=== PATIENT | male | born 1980 | race Caucasian/White ===

== ENCOUNTER 2023-10-31 21:14 | Inpatient (IN) | payer OTHER, SELFPAY ==
[~2023-10-31 21:14] MED LIST: Iopamidol-370 76% 500 ML MDV (1 ML CHARGE) ONE
[2023-10-31] MEDS ORDERED: Morphine 4 MG/ML VIAL ONE (21:21)
[2023-10-31] MEDS ORDERED: Ondansetron PF 4 MG/2 ML Vial ONE (21:21)
[2023-10-31] MEDS ORDERED: Boostrix 0.5 ML (Tdap) VIAL (>/=7 yrs of age) ONE (21:22)
[2023-10-31] MEDS ORDERED: Sodium Chloride 0.9% 100 ML ONE (21:22)
[2023-10-31] MEDS ORDERED: CEFAZOLIN 2 GM VIAL ONE (21:22)
[2023-10-31 21:42] LABS: Hematocrit 45.4 % (42.0-52.0); Hemoglobin 15.3 g/dL (14.0-18.0); Manual Diff?? YES; Mean Corpuscular HGB CONC 33.7 g/dL (32.0-36.0); Mean Corpuscular Hemoglobin 32.2 pg (27.0-31.0); Mean Corpuscular Volume 95.6 fl (78.0-98.0); Mean Platelet Volume 10.2 fL (7.4-10.4); Platelet Count 272 10x3/uL (130-400); RBC Distribution Width 12.2 % (11.5-14.5); Red Blood Cell (RBC) Count 4.75 mill/uL (4.70-6.10); White Blood Cell (WBC) Count 30.2 10x3/uL (4.8-10.8)
[2023-10-31 21:45] LABS: Delete Auto Diff?? YES
[2023-10-31 21:53] LABS: INR-International Normal Ratio 1.1; PTT 23.9 sec (22.9-36.1); Prothrombin Time 14.6 sec (12.0-14.7)
[2023-10-31 22:04] LABS: ALT (SGPT) 18 U/L (8-55); AST (SGOT) 34 U/L (5-34); Alcohol Less than 10.0 mg/dL (Less than 10); Alkaline Phosphatase 97 U/L (40-110); Anion Gap 13 mmol/L (10-20); BUN (Urea Nitrogen) 16 mg/dL (8.9-20.6); Bilirubin, Total 0.4 mg/dL (0.2-1.2); Calc. Creatinine Clearance 0 mL/min (70-130); Calcium 8.9 mg/dL (7.8-10.44); Carbon Dioxide 26 mmol/L (22-29); Chloride 107 mmol/L (98-107); Estimated GFR 102; Globulin 3.2 g/dL (2.4-3.5); Glucose 107 mg/dL (70-105); Protein, Total 7.2 g/dL (6.0-8.3); Sodium 142 mmol/L (136-145)
[2023-10-31 22:07] LABS: CellaVision Operator ID lab.abc; Lymphocytes 5 % (21-51); Monocytes 3 % (0-10); Neutrophil 92 % (42-75); Platelet Adequacy Comment Platelets Normal; RBC Morphology Within Normal Limits; Total Cell Count 100
[2023-10-31 22:37] LABS: #Basophils 0.1 thou/uL (0.0-0.2); #Neutrophils 18.2 thou/uL (1.40-6.50); %Basophils 0.2 % (0.0-1.0); %Eosinophils 0.1 % (0.0-10.0); %Lymphocytes 5.2 % (21.0-51.0); %Monocytes 4.7 % (0.0-10.0); Hematocrit 42.7 % (42.0-52.0); Hemoglobin 14.3 g/dL (14.0-18.0); Mean Corpuscular HGB CONC 33.5 g/dL (32.0-36.0); Mean Corpuscular Hemoglobin 32.1 pg (27.0-31.0); Mean Platelet Volume 10.2 fL (7.4-10.4); Platelet Count 186 10x3/uL (130-400); RBC Distribution Width 12.2 % (11.5-14.5); Red Blood Cell (RBC) Count 4.45 mill/uL (4.70-6.10); White Blood Cell (WBC) Count 20.4 10x3/uL (4.8-10.8)
[2023-10-31] MEDS ORDERED: Ipratropium/Albuterol 3 ML NEB NEB PRN (23:13)
[2023-10-31] MEDS ORDERED: Dextrose 5% in Water 1,000 ML IV PRN (23:13)
[2023-10-31] MEDS ORDERED: Glucagon 1 MG/ML KIT IM PRN (23:13)
[2023-10-31] MEDS ORDERED: Dextrose 50% Abboject 50 ML SYRINGE SLOW IVP PRN (23:13)
[2023-10-31] MEDS ORDERED: Ondansetron PF 4 MG/2 ML Vial IVP PRN (23:13)
[2023-10-31] MEDS ORDERED: Acetaminophen 325 MG TAB PO PRN (23:13)
[2023-10-31] MEDS ORDERED: Rib Fracture Protocol IV SCH (23:15)
[2023-10-31] MEDS ORDERED: Lidocaine/Transparent Dressing 1 EACH KIT ONE (23:25)
[2023-11-01] MEDS ORDERED: Morphine 4 MG/ML VIAL ONE (00:23)
[2023-11-01] MEDS: Acetaminophen 650 MG Suppository PR SCH ×2 (01:43→06:07)
[2023-11-01] MEDS: Ketorolac Tromethamine 30 MG (1 mL) VIAL IVP SCH ×5 (01:46→23:24)
[2023-11-01 01:47] VITALS: BMI 21.6
[2023-11-01] MEDS: D5 1/2 NS w/20 mEq KCL 1,000 ML IV SCH ×4 (01:49→23:23)
[2023-11-01] MEDS: Ipratropium/Albuterol 3 ML NEB NEB SCH ×4 (02:02→18:15)
[2023-11-01] MEDS: Morphine 4 MG/ML VIAL SLOW IVP PRN ×3 (08:58→21:09)
[2023-11-01 09:21] LABS: #Eosinphils 0.1 thou/uL (0.0-0.7); #Neutrophils 9.6 thou/uL (1.40-6.50); %Basophils 0.3 % (0.0-1.0); %Eosinophils 0.4 % (0.0-10.0); %Lymphocytes 15.8 % (21.0-51.0); %Monocytes 7.7 % (0.0-10.0); %Neutrophils 75.4 % (42.0-75.0); Hematocrit 40.7 % (42.0-52.0); Hemoglobin 13.7 g/dL (14.0-18.0); Mean Corpuscular HGB CONC 33.7 g/dL (32.0-36.0); Mean Corpuscular Hemoglobin 31.9 pg (27.0-31.0); Mean Corpuscular Volume 94.7 fl (78.0-98.0); Mean Platelet Volume 10.6 fL (7.4-10.4); Platelet Count 213 10x3/uL (130-400); RBC Distribution Width 12.5 % (11.5-14.5); White Blood Cell (WBC) Count 12.7 10x3/uL (4.8-10.8)
[2023-11-01 09:47] LABS: Anion Gap 8 mmol/L (10-20); BUN (Urea Nitrogen) 14 mg/dL (8.9-20.6); Calc. Creatinine Clearance 107 mL/min (70-130); Calcium 8.5 mg/dL (7.8-10.44); Carbon Dioxide 27 mmol/L (22-29); Chloride 106 mmol/L (98-107); Estimated GFR 113; Glucose 103 mg/dL (70-105); Sodium 137 mmol/L (136-145)
[2023-11-01] MEDS: Acetaminophen 325 MG TAB PO SCH ×3 (11:49→23:24)
[2023-11-01] MEDS ORDERED: Bacitracin 1 PK TOP SCH (15:15)
[2023-11-01] MEDS: traMADol HCl 50 MG TAB PO PRN (19:44)
[2023-11-01] MEDS: Bacitracin 1 PK TOP SCH (19:45)
[2023-11-02] MEDS: Ipratropium/Albuterol 3 ML NEB NEB SCH ×4 (00:24→20:02)
[2023-11-02] MEDS: Ketorolac Tromethamine 30 MG (1 mL) VIAL IVP SCH ×4 (05:28→23:49)
[2023-11-02] MEDS: Acetaminophen 325 MG TAB PO SCH ×4 (05:28→23:49)
[2023-11-02] MEDS: traMADol HCl 50 MG TAB PO PRN ×4 (05:29→23:46)
[2023-11-02] MEDS: D5 1/2 NS w/20 mEq KCL 1,000 ML IV SCH ×2 (09:47→14:50)
[2023-11-02] MEDS: Bacitracin 1 PK TOP SCH ×3 (09:48→20:50)
[2023-11-03] MEDS: Ipratropium/Albuterol 3 ML NEB NEB SCH ×3 (00:53→13:06)
[2023-11-03] MEDS: D5 1/2 NS w/20 mEq KCL 1,000 ML IV SCH (01:00)
[2023-11-03] MEDS: Acetaminophen 325 MG TAB PO SCH (05:19)
[2023-11-03] MEDS: Ketorolac Tromethamine 30 MG (1 mL) VIAL IVP SCH (05:20)
[2023-11-03] MEDS: Bacitracin 1 PK TOP SCH (09:10)
[2023-11-03 11:45] VITALS: BP 148/89; TEMP 98.1
[2023-11-03] MEDS ORDERED: traMADol HCl 50 MG TAB PO SCH (12:00)
[2023-11-03] MEDS ORDERED: Acetaminophen 500 MG TAB PO SCH (12:00)
== END 2023-11-03 14:27 | disposition home or self-care (01) | DRG 200 ==
LOC: ERS 21:14 → SURG A 22:58 → OBSVTOIN 11-02 08:24
PROVIDERS: ADMIT Student in an Organized Health Care Education/Training Program; ATTEND Student in an Organized Health Care Education/Training Program
DX: S27.0XXA Traumatic pneumothorax, initial encounter (principal); S22.031A Stable burst fracture of third thoracic vertebra, initial encounter for closed fracture; S22.41XA Multiple fractures of ribs, right side, initial encounter for closed fracture; S22.039A Unspecified fracture of third thoracic vertebra, initial encounter for closed fracture; S42.001A Fracture of unspecified part of right clavicle, initial encounter for closed fracture; G54.0 Brachial plexus disorders; V29.608A Unspecified rider of other motorcycle injured in collision with unspecified motor vehicles in traffic accident, initial encounter
CPT/HCPCS: 12001; 36415; 70450; 70486; 71045; 71046; 71260; 72125; 74177; 80048; 80053; 80307; 85025; 85610; 85730; 90471; 90715; 94640; 96365; 96375; 96376; G0378; G0390; J1885; J2270; J2405; J3480; J3490; J7620; Q9967